=== PATIENT | female | born 1995 | race Caucasian/White ===

== ENCOUNTER 2017-04-16 23:42 | Emergency (ER) | payer OTHER ==
[~2017-04-16] VITALS: Ht 167.6 cm; Wt 68.0 kg
[2017-04-17] MEDS ORDERED: FLUORESCEIN SODIUM 1 MG STRIP OP ONE (01:00)
[2017-04-17] MEDS ORDERED: TETRACAINE HCL 0.5% OPHT DROP 2 ML BOTTLE OP ONE (01:00)
[2017-04-17] MEDS ORDERED: TETRACAINE HCL 0.5% OPHT DROP 2 ML BOTTLE ONE (01:08)
[2017-04-17] MEDS ORDERED: FLUORESCEIN SODIUM 1 MG STRIP ONE (01:08)
--- NOTE | 2017-04-17 03:30 | NUR ---
Patient discharged to home in stable conditon. Written and verbal after care instructions given. Patient verbalizes understanding of instructions. PATIENT LEFT WITH STABLE GAIT.
[2017-04-17 06:07] VITALS: BP 108/58
== END 2017-04-17 06:07 | disposition home or self-care (01) ==
LOC: ER 23:47
DX: H10.9 Unspecified conjunctivitis (principal)
CPT/HCPCS: 99283; A4663